=== PATIENT | male | born 1980 | race African-American/Black ===

== ENCOUNTER 2019-04-15 15:05 | Emergency (ER) | payer SELFPAY ==
[2019-04-15 15:12] VITALS: BP 137/67
--- NOTE | 2019-04-15 16:26 | ER Document Report ---
ED Medical Screen (RME) - General Chief Complaint: Numbness of Face Stated Complaint: NECK PAIN Time Seen by Provider: 04/15/19 16:25 Mode of Arrival: Ambulatory Information source: Patient Notes: 38-year-old male presented to ED for complaint of sharp pains to his left arm and neck and head this started about 1130. He states he did not do anything for any reason for him to have these pains. He states his medical history is high blood pressure and diabetes. 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 States he has had deterioration removed from his head and to inguinal left surgeries. Patient denies smoking drinking or doing any drugs. Is alert oriented respirations regular and unlabored speaking in full sentences. I have greeted and performed a rapid initial assessment of this patient. A comprehensive ED assessment and evaluation of the patient, analysis of test results and completion of medical decision making process will be conducted by an additional ED providers. Dictation of this chart was performed using voice recognition software; therefore, there may be some unintended grammatical errors. TRAVEL OUTSIDE OF THE [place] IN LAST 30 DAYS: No - Related Data Allergies/Adverse Reactions: Milk Containing Products Allergy (Verified 04/15/19 15:06) Past Medical History - Social History Chew tobacco use (# tins/day): No Frequency of alcohol use: None Drug Abuse: None - Past Medical History Cardiac Medical History: Reports: Hx Hypertension Renal/ Medical History: Denies: Hx Peritoneal Dialysis Past Surgical History: Reports: Hx Abdominal Surgery - inguinal hernia repair x2 Physical Exam - Vital signs Vitals: Temp Pulse Resp BP Pulse Ox 97.8 F 64 18 137/67 H 98 04/15/19 15:06 04/15/19 15:06 04/15/19 15:06 04/15/19 15:06 04/15/19 15:06 Course - Vital Signs Vital signs: Temp Pulse Resp BP Pulse Ox 97.8 F 64 18 137/67 H 98 04/15/19 15:06 04/15/19 15:06 04/15/19 15:06 04/15/19 15:06 04/15/19 15:06
[2019-04-15 17:19] LABS: APPEARANCE,URINE CLEAR; BILIRUBIN,URINE NEGATIVE (NEGATIVE); COLOR,URINE YELLOW; GLUCOSE, URINE NEGATIVE (NEGATIVE); KETONES,URINE NEGATIVE (NEGATIVE); LEUKOCYTE ESTERASE,URINE TRACE (NEGATIVE); NITRITE,URINE NEGATIVE (NEGATIVE); PROTEIN,URINE NEGATIVE (NEGATIVE); URINE SPECIFIC GRAVITY 1.012; UROBILINOGEN,URINE NEGATIVE mg/dL (<2.0)
[2019-04-15 17:23] LABS: ABSOLUTE EOSINOPHILS # (AUTO) 0.1 10^3/uL (0.0-0.6); ABSOLUTE LYMPHOCYTES (AUTO) 2.2 10^3/uL (0.5-4.7); ABSOLUTE MONOCYTES (AUTO) 0.4 10^3/uL (0.1-1.4); ABSOLUTE NEUT (AUTO) 3.2 10^3/uL (1.7-8.2); BASOPHILS % (AUTO) 0.8 % (0-2); EOSINOPHILS % (AUTO) 1.3 % (0-6); HEMATOCRIT 41.4 % (37.9-51.0); LYMPHOCYTES % (AUTO) 37.7 % (13-45); MEAN CORPUSCULAR HGB CONC 33.9 g/dL (32.0-36.0); MEAN CORPUSCULAR VOLUME 80 fl (80-97); MONOCYTES % (AUTO) 7.1 % (3-13); PLATELET COUNT 117 10^3/uL (150-450); RED BLOOD COUNT 5.19 10^6/uL (4.35-5.55); RED CELL DISTRIBUTION WIDTH 14.8 % (11.5-14.0); SEGMENTED NEUTROPHILS % (AUTO) 53.1 % (42-78); TOTAL CELLS COUNTED % (AUTO) 100 %; WHITE BLOOD COUNT 5.9 10^3/uL (4.0-10.5)
[2019-04-15 17:36] LABS: ALANINE AMINOTRANSFERASE 25 U/L (21-72); ALBUMIN 4.6 g/dL (3.5-5.0); ALKALINE PHOSPHATASE 44 U/L (38-126); ANION GAP 11 (5-19); ASPARTATE AMINO TRANSFERASE 20 U/L (17-59); BILIRUBIN,DIRECT 0.2 mg/dL (0.0-0.4); BILIRUBIN,TOTAL 0.7 mg/dL (0.2-1.3); BLOOD UREA NITROGEN 19 mg/dL (7-20); CALCIUM 9.5 mg/dL (8.4-10.2); CARBON DIOXIDE 26 mmol/L (22-30); CHLORIDE 103 mmol/L (98-107); GLUCOSE 89 mg/dL (75-110); POTASSIUM 3.6 mmol/L (3.6-5.0); SODIUM 139.7 mmol/L (137-145); TOTAL PROTEIN 8.1 g/dL (6.3-8.2)
--- NOTE | 2019-04-15 17:38 | ER Document Report ---
ED General - General Chief Complaint: Numbness of Face Stated Complaint: NECK PAIN Time Seen by Provider: 04/15/19 16:25 Mode of Arrival: Ambulatory TRAVEL OUTSIDE OF THE [place] IN LAST 30 DAYS: No - HPI Notes: 38-year-old male to the emergency department with complaints of right-sided neck pain that he started to notice this morning. This pain runs up into the side of his face and into his right mormonism. He states that he notices that when he turns his neck a certain way, he has worsening pain. He denies any pennie numbness or tingling to his face. He denies any injury. He denies any falls. He denies numbness and tingling into his arms. He denies any extremity weaknes s. He denies any fevers, chills, stiff neck. He has not had anything for the pain. He thinks he may have slept incorrectly last night. 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 That is a little bit bigger than his normal weight that he carries for [employer]. He is unsure if he injured his neck while he was doing that. He does not remember any pain to the neck then. Denies any chest pain, shortness of breath ,diaphoresis, passing out, lightheadedness, dizziness. Have hypertension and he states that he is a borderline diabetic. - Related Data Allergies/Adverse Reactions: Milk Containing Products Allergy (Verified 04/15/19 15:06) Past Medical History - General Information source: Patient - Social History Smoking Status: Never Smoker Chew tobacco use (# tins/day): No Frequency of alcohol use: None Drug Abuse: None Family History: DM, Hypertension Patient has suicidal ideation: No Patient has homicidal ideation: No - Past Medical History Cardiac Medical History: Reports: Hx Hypertension Renal/ Medical History: Denies: Hx Peritoneal Dialysis Past Surgical History: Reports: Hx Abdominal Surgery - inguinal hernia repair x2 Review of Systems - Review of Systems Constitutional: denies: Chills, Fever EENT: denies: Ear pain, Throat swelling, Mouth pain, Mouth swelling Cardiovascular: denies: Chest pain, Palpitations, Syncope, Dizziness, Lightheaded Respiratory: denies: Cough, Short of breath Gastrointestinal: denies: Abdominal pain, Diarrhea, Nausea, Vomiting Genitourinary: No symptoms reported Musculoskeletal: See HPI, Neck pain. denies: Back pain, Joint pain, Joint swelling Skin: No symptoms reported Neurological/Psychological: No symptoms reported -: Yes All other systems reviewed and negative Physical Exam - Vital signs Vitals: Temp Pulse Resp BP Pulse Ox 97.8 F 64 18 137/67 H 98 04/15/19 15:06 04/15/19 15:06 04/15/19 15:06 04/15/19 15:06 04/15/19 15:06 Interpretation: Normal - General General appearance: Appears well, Alert - HEENT Head: Normocephalic, Atraumatic Eyes: Normal Pupils: PERRL Neck: Other - There is tenderness to palpation along the right sternocleidomastoid muscle as well as the platysma muscle at their insertion sites at the base of the school and along the jawline. Patient has increased pain when he stretches these muscles and brings his head down to his left shoulder. He does not have decrease of range of motion in his neck. There is no evidence of meningeal signs. No: Brudzinski - ., Kernig's, Meningismus - Respiratory Respiratory status: No respiratory distress Chest status: Nontender Breath sounds: Normal Chest palpation: Normal - Cardiovascular Rhythm: Regular Heart sounds: Normal auscultation Murmur: No - Abdominal Inspection: Normal Distension: No distension Bowel sounds: Normal Tenderness: Nontender Organomegaly: No organomegaly - Back Back: Normal, Nontender. No: Vertebra tenderness - Extremities General upper extremity: Normal inspection, Nontender, Normal color, Normal ROM, Normal temperature General lower extremity: Normal inspection, Nontender, Normal color, Normal ROM, Normal temperature, Normal weight bearing. 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 No: Pronator drift Sensory: Normal - Psychological Associated symptoms: Normal affect, Normal mood - Skin Skin Temperature: Warm Skin Moisture: Dry Skin Color: Normal Course - Re-evaluation Re-evalutation: Noted imaging is ordered from triage. Will await results. Do believe that this neck pain is musculoskeletal and it is giving the patient a tension headache. He has no neurological deficits and he denies any facial numbness to me. Once CT returns we will plan on sending patient home with muscle relaxants and NSAIDs if CTs are reassuring. CT results which do not show any acute abnormalities. Will send patient home with muscle relaxants and NSAIDs as I suspect that this is a neck strain that is giving him a tension headache. Patient agrees with the plan. Will discharge home. Encouraged him to return if he has any worsening pain, fevers, blurry vision, nausea vomiting, chest pain, shortness of breath, focal neurological deficits or any other concerns - Vital Signs Vital signs: Temp Pulse Resp BP Pulse Ox 97.8 F 64 18 137/67 H 98 04/15/19 15:06 04/15/19 15:06 04/15/19 15:06 04/15/19 15:06 04/15/19 15:06 - Laboratory Result Diagrams: 04/15/19 17:00 04/15/19 17:00 Laboratory results interpreted by me: 04/15/19 04/15/19 17:00 17:00 RDW 14.8 H Plt Count 117 L Ur Leukocyte Esterase TRACE H Discharge - Discharge Clinical Impression: Strain of sternocleidomastoid muscle, Neck pain, Headache Condition: Stable Disposition: HOME, SELF-CARE Instructions: Muscle Strain ([facility]) Additional Instructions: FOLLOW UP WITH YOUR PRIMARY CARE PHYSICIAN IN THE NEXT 3-5 DAYS. TAKE MUSCLE RELAXANT AND PAIN MEDICINES PRESCRIBED. RETURN IF ANY FEVERS, CHILLS, SHORTNESS OF BREATH, WORSENING HEADACHE, PASSING OUT, CHEST PAIN. GENTLE STRETCHING OF THE NECK. Prescriptions: Cyclobenzaprine HCl [Flexeril 10 mg Tablet] 10 mg PO TID #20 tablet Naproxen [Naprosyn] 500 mg PO BID #16 tablet Forms: Return to Work
--- NOTE | 2019-04-15 18:12 | RADIOLOGY REPORT (SQ) ---
EXAM DESCRIPTION: CT HEAD WITHOUT COMPLETED DATE/TIME: 04/15/2019 5:55 pm REASON FOR STUDY: sudden head and neck pain no injury, HTN dm COMPARISON: None. TECHNIQUE: Axial images acquired through the brain without intravenous contrast. Images reviewed wit h bone, brain and subdural windows. Images stored on PACS. All CT scanners at this facility use dose modulation, iterative reconstruction, and/or weight based d osing when appropriate to reduce radiation dose to as low as reasonably achievable (ALARA). [facility]: Dose Right [facility]: CareDose [facility]: Dose Right [facility]: Teradose 4D [facility]: A [employer] RADIATION DOSE: CT Rad equipment meets quality standard of care and radiation dose reduction techniq ues were employed. CTDIvol: 48.5 mGy. DLP: 855 mGy-cm.. LIMITATIONS: None. FINDINGS: VENTRICLES: Normal size and contour. CEREBRUM: No masses. No hemorrhage. No midline shift. Age appropriate white matter. No evidence for a cute infarction. CEREBELLUM: No masses. No hemorrhage. No alteration of density. No evidence for acute infarction. EXTRA-AXIAL SPACES: No fluid collections. ORBITS AND GLOBE: No intra- or extraconal masses. Normal contour of globe without masses. CALVARIUM: No fracture. PARANASAL SINUSES: No fluid or mucosal thickening. SOFT TISSUES: No hematoma. Small areas of nodularity in the posterior scalp. OTHER: No other significant finding. IMPRESSION: NO ACUTE INTRACRANIAL FINDINGS. EVIDENCE OF ACUTE STROKE: NO. TECHNICAL DOCUMENTATION: JOB ID: [id number] [place]-72 Quality ID # 436: Final reports with documentation of one or more dose reduction techniques (e.g., Au tomated exposure control, adjustment of the mA and/or kV according to patient size, use of iterative reconstruction technique) 2010 [employer]- All Rights Reserved Reading location - IP/workstation name: [email or web address]
--- NOTE | 2019-04-15 18:38 | RADIOLOGY REPORT (SQ) ---
EXAM DESCRIPTION: CT CERVICAL SPINE WITHOUT COMPLETED DATE/TIME: 04/15/2019 5:55 pm REASON FOR STUDY: sudden head and neck pain no injury, HTN dm COMPARISON: None. TECHNIQUE: Axial images acquired through the cervical spine without intravenous contrast. Images re viewed with lung, soft tissue and bone windows. Reconstructed coronal and sagittal MPR images review ed. Images stored on PACS. All CT scanners at this facility use dose modulation, iterative reconstruction, and/or weight based d osing when appropriate to reduce radiation dose to as low as reasonably achievable (ALARA). [facility]: Dose Right [facility]: CareDose [facility]: Dose Right [facility]: Teradose 4D [facility]: [employer] RADIATION DOSE: CT Rad equipment meets quality standard of care and radiation dose reduction techniq ues were employed. CTDIvol: 21.2 mGy. DLP: 544 mGy-cm. mGy. LIMITATIONS: None. FINDINGS: ALIGNMENT: Anatomic. MINERALIZATION: Normal. VERTEBRAL BODIES: No fractures or dislocation. DISCS: No significant disc disease. FACETS, LATERAL MASSES, POSTERIOR ELEMENTS: No fractures. No dislocation. No acute findings. HARDWARE: None in the spine. VISUALIZED RIBS: No fractures. LUNG APICES AND SOFT TISSUES: No significant or acute findings. OTHER: No other significant finding. IMPRESSION: NO ACUTE OR SIGNIFICANT FINDINGS IN THE CERVICAL SPINE. TECHNICAL DOCUMENTATION: JOB ID: [id number] [place]-72 Quality ID # 436: Final reports with documentation of one or more dose reduction techniques (e.g., Au tomated exposure control, adjustment of the mA and/or kV according to patient size, use of iterative reconstruction technique) 2010 [employer]- All Rights Reserved Reading location - IP/workstation name: [email or web address]
[2019-04-15] MEDS ORDERED: NAPROXEN 250 MG TABLET PO ONE (19:00)
== END 2019-04-15 19:23 | disposition home or self-care (01) ==
LOC: ER 15:05
DX: S16.1XXA Strain of muscle, fascia and tendon at neck level, initial encounter (principal); M54.2 Cervicalgia; X58.XXXA Exposure to other specified factors, initial encounter; R51 Headache; I10 Essential (primary) hypertension; Z91.011 Allergy to milk products
CPT/HCPCS: 36415; 70450; 72125; 80053; 81001; 85025; 99284